=== PATIENT | male | born 1940 | race Two or more races ===

== ENCOUNTER 2018-11-10 07:27 | Day surgery (SDC) | payer OTHER | END 2018-11-10 14:10 | disposition home or self-care (01) | LOC: AMB-ENDOS 07:27 | DX: D12.0 Benign neoplasm of cecum (principal); D12.2 Benign neoplasm of ascending colon; D12.3 Benign neoplasm of transverse colon; D12.5 Benign neoplasm of sigmoid colon; D12.8 Benign neoplasm of rectum ==